=== PATIENT | male | born 1995 | race Caucasian/White ===

== ENCOUNTER 2017-08-02 15:19 | Emergency (ER) | payer BC, OTHER ==
[~2017-08-02] VITALS: Ht 182.9 cm; Wt 86.2 kg
[2017-08-02] MEDS ORDERED: TETRACAINE 0.5% OPHTH SOLN 4 ML BTL (SINGLE DOSE ONLY) ONE (15:51)
[2017-08-02] MEDS ORDERED: FLUORESCEIN (FLUOR-I-STRIPS) 1 MG STRP ONE (15:51)
[2017-08-02] MEDS ORDERED: TETRACAINE 0.5% OPHTH SOLN 4 ML BTL (SINGLE DOSE ONLY) OU ONE (16:15)
[2017-08-02] MEDS ORDERED: FLUORESCEIN (FLUOR-I-STRIPS) 1 MG STRP OU ONE (16:15)
--- NOTE | 2017-08-02 16:39 | ED EENT ---
History of Present Illness General Chief Complaint: Eye Problems Stated Complaint: L EYE REDNESS/SWELLING Nursing Triage Note: pt reports l eye redness and pain after sleeping with contacts in last night. Source: patient Exam Limitations: no limitations History of Present Illness Time seen by provider: 16:31 Initial Comments Patient presents to ER by private conveyance with a general complaint of left eye redness. He says he's been wearing his contacts in day and night for the past month. He says he does all the time and usually just gets a little irritated or red and he'll take it out for a day or 2 and it's better however today it's been exquisitely painful. He says he is not having any problems with vision other than he had baseline he has very poor vision. He does not know what his vision is. He does not have any glasses on him as he is from [place] and just here on holiday travel. He plans to leave on the , 2 days from now. He is not having any mattering or exudate from his eye. Is not having any fevers chills or swelling around the eye. He has not used anything for his eye yet. Allergies and Home Medications Allergies Coded Allergies: No Known Drug Allergies (Unverified , 08/02/17) Home Medications No Active Prescriptions or Reported Meds Review of Systems Constitutional: No chills, No diaphoresis Eyes: Denies Blindness, Blurred Vision, Denies Drainage, Denies Foreign Body Sensation, Inflammation, Pain, Photophobia, Denies Vision Changes, Contact Lenses, Denies Glasses Ears: Denies Dizziness, Denies Pain Nose: denies clots, denies congestion Mouth: denies clots, denies pain, denies swelling Respiratory: No cough, No wheezing Cardiovascular: No chest pain, No palpitations Gastrointestinal: No constipation, No diarrhea, No nausea, No vomiting Past Soyxvlv-Fnvhbx-Jtxhpt Hx Patient Social History Alcohol Use: Regular Use Alcohol Beverage of Choice: Beer Recreational Drug Use: No Smoking Status: Never a Smoker Recent Foreign Travel: No Contact w/Someone Who Travel: No Recent Infectious Disease Expo: No Physical Abuse: No Sexual Abuse: No Mistreated: No Fear: No Psychosocial Suicide Risk Score: 0 Physical Exam Vital Signs Vital Sign - Last 12Hours 08/02/17 15:47 Temp 97.2 Pulse 71 Resp 16 B/P (MAP) 142/79 (100) Pulse Ox 98 General Appearance: WD/WN, mild distress Eyes: right eye normal inspection, left eye conjunctival inflammation, left eye corneal abrasion (small linear 3 mm long at 6:00 and 2 mm long at 4:00 not there contiguous), bilateral eye PERRL, bilateral eye EOMI Ears: bilateral ear auricle normal, bilateral ear canal normal, bilateral ear TM normal Nose: normal inspection, No active bleeding Neck: full range of motion, normal inspection Neurologic/Psychiatric: alert, oriented x 3 Progress/Results/Core Measures Results/Orders My Orders Orders - CASSANDRA MC Fluorescein Strips (Rpfeq-S-Jlwcay) (08/02/17 15:51) Tetracaine 0.5% Ophth Magali Sdv (Tetracai (08/02/17 15:51) Tetracaine 0.5% Ophth Magali Sdv (Tetracai (08/02/17 16:15) Fluorescein Strips ([id number]-O-[id number]) (08/02/17 16:15) Medications Given in ED Current Medications Medications Dose Ordered Sig/Jaylin Route Start Time Stop Time Status Last Admin Dose Admin Fluorescein Sodium 1 mg ONCE ONCE OU 08/02/17 16:15 08/02/17 16:16 DC 08/02/17 16:42 1 MG Tetracaine HCl 4 ml ONCE ONCE OU 08/02/17 16:15 08/02/17 16:16 DC 08/02/17 16:42 4 ML Vital Signs/I&O Vital Sign - Last 12Hours 08/02/17 15:47 Temp 97.2 Pulse 71 Resp 16 B/P (MAP) 142/79 (100) Pulse Ox 98 Blood Pressure Mean: 100 Progress Note : Progress Note Fluorescein stain reveals 2 small corneal abrasions but no evidence of ulceration or other lesions indicative of an infection. He does have significant inflammation. He was counseled on proper use of contacts. We will get a visual acuity test and if he does okay on this then he can follow-up in 2- 3 days with optometry/ophthalmology of his choice. We'll cover him with some antibiotic drops. 1720: Visual acuity in the unaffected eye is 20/200 in the affected eye is 20/ 50. Together it's 20/50. Departure Impression Impression: Primary Impression: Corneal abrasion Qualified Codes: S05.02XA - Injury of conjunctiva and corneal abrasion without foreign body, left eye, initial encounter Additional Impression: Keratitis Disposition: 01 HOME, SELF-CARE Condition: Improved Departure-Patient Inst. Decision time for Depature: 17:24 Referrals: NO,LOCAL PHYSICIAN (PCP/Family) Primary Care Physician Patient Instructions: Corneal Abrasion (DC) Add. Discharge Instructions: Use your contact lens solution to rinse your eye out as needed. setup operator the antibiotic drops and apply 3 drops every 4 hours for 5 days. In 24-48 hours follow-up with either an pacs specialist or dx board operator of your choice. Dr. Odom can be contacted at [phone] to set up an appointment Thursday or Thursday. All discharge instructions reviewed with patient and/or family. Voiced understanding. Scripts Ciprofloxacin HCl (Ciloxan) 5 Ml Drops 3 DROPS OP Q4H for 5 Days, #1 EACH 0 Refills 3 Drops Each Ear Prov: CASSANDRA MC 08/02/17 Copy Copies To 1: JESSIKA OWEN OD CASSANDRA MC Aug 02, 2017 16:39
[2017-08-02] MEDS ORDERED: CIPR5DRO OP (17:25)
[2017-08-02 17:30] VITALS: BP 136/82
== END 2017-08-02 17:30 | disposition home or self-care (01) ==
LOC: EDUNIT# 15:19 → ER 15:21
DX: S05.02XA Injury of conjunctiva and corneal abrasion without foreign body, left eye, initial encounter (principal); H16.8 Other keratitis; X58.XXXA Exposure to other specified factors, initial encounter
CPT/HCPCS: 99282

== ENCOUNTER 2019-06-12 20:56 | Emergency (ER) | payer BC ==
[~2019-06-12] VITALS: Ht 182.8 cm; Wt 86.1 kg
[~2019-06-12 20:56] MED LIST: CIPR5DRO OP
[2019-06-12] MEDS ORDERED: LACTATED RINGERS 1,000 ML IV ONE ×3 (21:52→23:15)
[2019-06-12] MEDS ORDERED: ONDANSETRON 4 MG/2 ML (SDV) Z0FRAN IVP ONE (22:00)
[2019-06-12 22:17] LABS: BASOPHILS % (AUTO) 0 % (0-10); EOSINOPHILS % (AUTO) 0 % (0-10); HEMATOCRIT 47 % (40-54); HEMOGLOBIN 16.5 G/DL (13.3-17.7); LYMPHOCYTES # (AUTO) 0.7 X 10^3 (1.0-4.0); LYMPHOCYTES % (AUTO) 6 % (12-44); MEAN CORPUSCULAR HEMOGLOBIN 30 PG (25-34); MEAN CORPUSCULAR HGB CONC 35 G/DL (32-36); MEAN CORPUSCULAR VOLUME 85 FL (80-99); MEAN PLATELET VOLUME 11.2 FL (7.4-10.4); MONOCYTES # (AUTO) 0.9 X 10^3 (0.0-1.0); MONOCYTES % (AUTO) 7 % (0-12); NEUTROPHILS # (AUTO) 10.5 X 10^3 (1.8-7.8); NEUTROPHILS % (AUTO) 87 % (42-75); PLATELET COUNT 146 10^3/uL (130-400); RED CELL DISTRIBUTION WIDTH 13.3 % (10.0-14.5); WHITE BLOOD COUNT 12.1 10^3/uL (4.3-11.0)
[2019-06-12] MEDS ORDERED: NS 100 ML (IVPB) BAG IV ONE (22:30)
[2019-06-12] MEDS ORDERED: IOHEXOL 350 MG/ML 100 ML (OMNIPAQUE 350) VIAL IV ONE (22:30)
[2019-06-12 22:35] LABS: ALANINE AMINOTRANSFERASE 13 U/L (0-55); ALBUMIN 4.4 GM/DL (3.2-4.5); ALKALINE PHOSPHATASE 53 U/L (40-136); AMYLASE 49 U/L (25-125); BILIRUBIN,TOTAL 1.1 MG/DL (0.1-1.0); BUN/CREATININE RATIO 11; CALCIUM 9.3 MG/DL (8.5-10.1); CARBON DIOXIDE 20 MMOL/L (21-32); CHLORIDE 100 MMOL/L (98-107); CREATININE SERUM 1.28 MG/DL (0.60-1.30); GFR ESTIMATED > 60; GLUCOSE 118 MG/DL (70-105); LIPASE 14 U/L (8-78); POTASSIUM 3.6 MMOL/L (3.6-5.0); SODIUM 136 MMOL/L (135-145); TOTAL PROTEIN 7.2 GM/DL (6.4-8.2)
--- NOTE | 2019-06-12 22:37 | ED GI ---
General Stated Complaint: VOMITING, LOSS OF APPETITE Source of Information: Patient History of Present Illness Date Seen by Provider: Jun 12, 2019 Time Seen by Provider: 21:48 Initial Comments PT ARRIVES VIA POV FROM HOME WITH 2 ELDERLY FEMALES PT STATES "I BEEN HAVING PANIC ATTACKS AND I CAN'T KEEP ANYTHING DOWN" SINCE 0400 THIS AM--STATES HE NEVER REALLY SLEPT LAST NIGHT, WHICH IS ONGOING PROBLEM FOR PT. STATES HE HAS VOMITED "EVERY 20-30 MINUTES" ALL DAY LONG NO DIARRHEA C/O GENERALIZED ABDOMINAL PAIN LAST VOID IS UNKNOWN IS UNKNOWN IF HE HAS HAD FEVER OR NOT NO KNOWN SICK CONTACTS OR SUSPICIOUS FOODS PT STATES HE HAS "BEEN HAVING PANIC ATTACKS FOR THE LAST 2 MONTHS" WAS STARTED ON LEXAPRO--RX FILLED 05/20/19, AND XANAX RX FILLED 06/06/19--FIRST PRESCRIBED/FILLED LOCALLY ON 04/28/19. STATES HE HAS NOT TAKEN LEXAPRO TODAY, BUT HAS TAKEN XANAX TODAY AND HAS KEPT IT DOWN. PT DRINKS ON A REGULAR BASIS--3-4 DAYS/WEEK--AND DRANK "5 OR 6" DRINKS LAST PM PT ALSO LATER ADMITS TO USING THC "YEARS AGO" AND "ADDERALL TO HELP ME STUDY"--NOT PRESCRIBED TO HIM-- "BUT NOT FOR A LONG TIME" PCP: ERNA Allergies and Home Medications Allergies Coded Allergies: No Known Drug Allergies (Unverified , 08/02/17) Home Medications Amoxicillin/Potassium Clav 1 Each Tablet, 1 EACH PO BID Prescribed by: NELIDA CASTILLO on [birth year]13/1923 Ciprofloxacin HCl 5 Ml Drops, 3 DROPS OP Q4H 3 Drops Each Ear Prescribed by: CASSANDRA MC on 08/02/17 1725 Lactobacillus Acidophilus 1 Each Capsule, 2 EACH PO QID Prescribed by: NELIDA CASTILLO on 06/13/1923 Ondansetron 4 Mg Tab.rapdis, 4 MG PO Q4H Prescribed by: NELIDA CASTILLO on 06/13/1923 Patient Home Medication List Home Medication List Reviewed: Yes Review of Systems Review of Systems Constitutional: no symptoms reported; No chills, No diaphoresis, No dizziness, No fever EENTM: No Nose Congestion; Throat Pain (SINCE THIS AM) Respiratory: No Symptoms Reported Cardiovascular: No Symptoms Reported Gastrointestinal: See HPI, Abdominal Pain; Denies Diarrhea; Nausea, Poor Appetite, Poor Fluid Intake, Vomiting Genitourinary: See HPI Musculoskeletal: no symptoms reported Skin: no symptoms reported Psychiatric/Neurological: No Symptoms Reported, Anxiety; Denies Headache Endocrine: No Symptoms Reported Hematologic/Lymphatic: No Symptoms Reported Past Cfxcepm-Vcirzb-Fytata Hx Patient Social History Alcohol Use: Regular Use Alcohol Beverage of Choice: Beer Recreational Drug Use: Yes (THC, ADDERALL) Drug of Choice: THC, ADDERALL Smoking Status: Current Someday Smoker Type Used: Cigarettes Recent Foreign Travel: No Contact w/Someone Who Travel: No Past Medical History Surgeries: No Respiratory: No Cardiac: No Neurological: No Genitourinary: No Gastrointestinal: No Musculoskeletal: No Endocrine: No HEENT: No Psychosocial: Yes Sleep Difficulties, Anxiety Physical Exam Vital Signs Vital Signs - First Documented 06/12/19 21:25 Temp 39.0 Pulse 133 Resp 24 B/P (MAP) 120/69 (86) Pulse Ox 96 Capillary Refill : Height/Weight/BMI Height: 6'" Weight: 190lbs. oz. [id number]; BMI Method:Stated General Appearance: WD/WN, no apparent distress, other (DRAMATIC, KEEPS EYES CLOSED. VERY MALODOROUS) HEENT: PERRL/EOMI, TMs normal, pharyngeal erythema (AND TONSILS 2-3/4 IN SIZE. NO EVIDENCE OF PERITONSILLAR ABSCESS), tonsillar exudate (EXTENSIVE EXUDATES BILATERALLY) Neck: normal inspection Respiratory: normal breath sounds, no respiratory distress, no accessory muscle use Cardiovascular: regular rate, rhythm, no edema, no JVD, no murmur Gastrointestinal: normal bowel sounds, soft, no organomegaly, no pulsatile mass; No distended, No guarding, No rebound; tenderness (GENERALIZED); No hernia, No mass Extremities: normal inspection, no pedal edema, no calf tenderness, normal capillary refill Back: normal inspection, no CVA tenderness Neurologic/Psychiatric: lot porter II-XII nml as tested, no motor/sensory deficits, alert, oriented x 3 Skin: normal color, warm/dry Focused Exam Lactate Level 06/12/19 22:07: Lactic Acid Level 1.04 Lactic Acid Level Laboratory Tests Test 06/12/19 22:07 Lactic Acid Level 1.04 MMOL/L (0.50-2.00) Progress/Results/Core Measures Results/Orders Lab Results Laboratory Tests Test 06/12/19 22:02 06/12/19 22:07 06/12/19 22:28 06/12/19 23:25 Range/Units White Blood Count 12.1 H 4.3-11.0 10^3/uL Red Blood Count 5.58 4.35-5.85 10^6/uL Hemoglobin 16.5 13.3-17.7 G/DL Hematocrit 47 40-54 % Mean Corpuscular Volume 85 80-99 FL Mean Corpuscular Hemoglobin 30 25-34 PG Mean Corpuscular Hemoglobin Concent 35 32-36 G/DL Red Cell Distribution Width 13.3 10.0-14.5 % Platelet Count 146 130-400 10^3/uL Mean Platelet Volume 11.2 H 7.4-10.4 FL Neutrophils (%) (Auto) 87 H 42-75 % Lymphocytes (%) (Auto) 6 L 12-44 % Monocytes (%) (Auto) 7 0-12 % Eosinophils (%) (Auto) 0 0-10 % Basophils (%) (Auto) 0 0-10 % Neutrophils # (Auto) 10.5 H 1.8-7.8 X 10^3 Lymphocytes # (Auto) 0.7 L 1.0-4.0 X 10^3 Monocytes # (Auto) 0.9 0.0-1.0 X 10^3 Eosinophils # (Auto) 0.0 0.0-0.3 10^3/uL Basophils # (Auto) 0.0 0.0-0.1 10^3/uL Sodium Level 136 135-145 MMOL/L Potassium Level 3.6 3.6-5.0 MMOL/L Chloride Level 100 98-107 MMOL/L Carbon Dioxide Level 20 L 21-32 MMOL/L Anion Gap 16 H 5-14 MMOL/L Blood Urea Nitrogen 14 7-18 MG/DL Creatinine 1.28 0.60-1.30 MG/DL Estimat Glomerular Filtration Rate > 60 BUN/Creatinine Ratio 11 Glucose Level 118 H 70-105 MG/DL Calcium Level 9.3 8.5-10.1 MG/DL Corrected Calcium 9.0 8.5-10.1 MG/DL Magnesium Level 2.0 1.6-2.4 MG/DL Total Bilirubin 1.1 H 0.1-1.0 MG/DL Aspartate Amino Transf (AST/SGOT) 16 5-34 U/L Alanine Aminotransferase (ALT/SGPT) 13 0-55 U/L Alkaline Phosphatase 53 40-136 U/L Total Protein 7.2 6.4-8.2 GM/DL Albumin 4.4 3.2-4.5 GM/DL Amylase Level 49 25-125 U/L Lipase 14 8-78 U/L Serum Alcohol < 10 <10 MG/DL Lactic Acid Level 1.04 0.50-2.00 MMOL/L Monoscreen NEGATIVE NEGATIVE Urine Color YELLOW Urine Clarity CLEAR Urine pH 7 5-9 Urine Specific [place] 1.010 L 1.016-1.022 Urine Protein 3+ H NEGATIVE Urine Glucose (UA) NEGATIVE NEGATIVE Urine Ketones 4+ H NEGATIVE Urine Nitrite NEGATIVE NEGATIVE Urine Bilirubin 1+ H NEGATIVE Urine Urobilinogen 4 H NORMAL MG/DL Urine Leukocyte Esterase 1+ H NEGATIVE Urine RBC (Auto) 1+ H NEGATIVE Urine RBC 0-2 /HPF Urine WBC 0-2 /HPF Urine Crystals NONE /LPF Urine Bacteria TRACE /HPF Urine Casts NONE /LPF Urine Mucus NEGATIVE /LPF Urine Culture Indicated NO Urine Opiates Screen NEGATIVE NEGATIVE Urine Oxycodone Screen NEGATIVE NEGATIVE Urine Methadone Screen NEGATIVE NEGATIVE Urine Propoxyphene Screen NEGATIVE NEGATIVE Urine Barbiturates Screen NEGATIVE NEGATIVE Ur Tricyclic Antidepressants Screen NEGATIVE NEGATIVE Urine Phencyclidine Screen NEGATIVE NEGATIVE Urine Amphetamines Screen POSITIVE H NEGATIVE Urine Methamphetamines Screen NEGATIVE NEGATIVE Urine Benzodiazepines Screen POSITIVE H NEGATIVE Urine Cocaine Screen NEGATIVE NEGATIVE Urine Cannabinoids Screen POSITIVE H NEGATIVE Group A Streptococcus Screen POSITIVE H NEGATIVE Micro Results Microbiology 06/12/19 Influenza Types A,B Antigen (DWAYNE) - Final, Complete My Orders Orders - NELIDA CASTILLO DO Ua Culture If Indicated (06/12/19 21:47) Drug Screen Stat (Urine) (06/12/19 21:47) Ed Iv/Invasive Line Start (06/12/19 21:52) Alcohol (06/12/19 21:52) Amylase (06/12/19 21:52) Cbc With Automated Diff (06/12/19 21:52) Comprehensive Metabolic Panel (06/12/19 21:52) Lipase (06/12/19 21:52) Magnesium (06/12/19 21:52) Ct Abd/Pelv W (Appendicitis) (06/12/19 21:52) Ondansetron Injection (Zofran Injectio (06/12/19 22:00) Ed Iv/Invasive Line Start (06/12/19 21:52) Lactated Ringers (Lr 1000 Ml Iv Solution (06/12/19 21:52) Iohexol Injection (Omnipaque 350 Mg/Ml 1 (06/12/19 22:30) Ns (Ivpb) (Sodium Chloride 0.9% Ivpb Bag (06/12/19 22:30) Acute Abd Series (06/12/19 22:28) Monotest (06/12/19 22:45) Lactic Acid Analyzer (06/12/19 22:45) Rapid Strep A Screen (06/12/19 22:45) Blood Culture (06/12/19 22:45) Influenza A And B Antigens (06/12/19 22:45) Acetaminophen Tablet (Tylenol Tablet) (06/12/19 23:15) Ed Iv/Invasive Line Start (06/12/19 23:15) Lactated Ringers (Lr 1000 Ml Iv Solution (06/12/19 23:15) Ed Iv/Invasive Line Start (06/12/19 23:15) Lactated Ringers (Lr 1000 Ml Iv Solution (06/12/19 23:15) Ceftriaxone For Iv Use (Rocephin For I (06/13/19 00:00) Ceftriaxone For Iv Use (Rocephin For I (06/13/19 00:40) Water (Sterile) For Injection (Sterile W (06/13/19 00:40) Medications Given in ED Current Medications Medications Dose Ordered Sig/Jaylin Route Start Time Stop Time Status Last Admin Dose Admin Acetaminophen 1,000 mg ONCE ONCE PO 06/12/19 23:15 06/12/19 23:16 DC 06/12/19 23:20 1,000 MG Ceftriaxone Sodium 1000 mg/ Sterile Water 10 ml @ 200 mls/hr ONCE ONCE IV 06/13/19 00:00 06/13/19 01:02 DC 06/13/19 00:47 200 MLS/HR Iohexol 100 ml ONCE ONCE IV 06/12/19 22:30 06/13/19 01:02 DC 06/12/19 22:25 100 ML Lactated Ringer's 1,000 ml @ 0 mls/hr Q0M ONCE IV 06/12/19 21:52 06/12/19 21:55 DC 06/12/19 22:48 1,000 MLS/HR Lactated Ringer's 1,000 ml @ 0 mls/hr Q0M ONCE IV 06/12/19 23:15 06/12/19 23:16 DC 06/12/19 23:19 1,000 MLS/HR Lactated Ringer's 1,000 ml @ 0 mls/hr Q0M ONCE IV 06/12/19 23:15 06/12/19 23:16 DC 06/12/19 23:51 1,000 MLS/HR Ondansetron HCl 8 mg ONCE ONCE IVP 06/12/19 22:00 06/12/19 22:01 DC 06/12/19 22:49 8 MG Sodium Chloride 80 ml ONCE ONCE IV 06/12/19 22:30 06/13/19 01:02 DC 06/12/19 22:25 80 ML Vital Signs/I&O 06/12/19 06/12/19 06/13/19 21:25 23:20 00:45 Temp 39.0 38.3 37.6 Pulse 133 83 Resp 24 18 B/P (MAP) 120/69 (86) 101/54 (86) Pulse Ox 96 96 06/13/19 00:00 Intake Total 2000 ml Balance 2000 ml Progress Progress Note : Progress Note NO VOMITING DURING ER STAY. GIVEN ZOFRAN AND NAUSEA IS IMPROVED OVERALL IS FEELING MUCH BETTER AT DISMISSAL PT TOLERATING WATER AND ICE CHIPS PRIOR TO DISMISSAL QUESTION WHETHER SOME OF PT'S REPORTED ANXIETY SYMPTOMS AND SLEEP DIFFICULTIES ARE DIRECTLY RELATED TO HIS ILLICIT USE OF ADDERALL ALSO QUESTION WHETHER SOME OF PT'S REPORTED GI SYMPTOMS, AND POSSIBLY SOME OF HIS OTHER SYMPTOMS COULD ALSO BE RELATED TO DRINKING Diagnostic Imaging Comments ABDOMEN XRAYS--NO ACUTE PROCESS, PENDING RADIOLOGIST REVIEW CT ABDOMEN/PELVIS--HEPATOSPLENOMEGALY AND DIFFUSE HEPATIC STEATOSIS, MILDLY DISTENDED AND FLUID FILLED LOOPS OF SMALL BOWEL DISTALLY, WITH LIQUID STOOL IN PROXIMAL COLON--SUGGESTIVE OF ACUTE ENTERITIS, WITH MILD BLADDER WALL THICKENING, PER [facility] VIA FAX AT [id number] Reviewed: Reviewed by Me Departure Impression Primary Impression: Strep pharyngitis Additional Impressions: Gastroenteritis Illicit drug use Mild dehydration Disposition: HOME, SELF-CARE Condition: Improved Departure-Patient Inst. Referrals: NO,LOCAL PHYSICIAN (PCP/Family) Primary Care Physician Patient Instructions: [id number], Strep Throat (DC), Drug Abuse and Drug Addiction (DC) Add. Discharge Instructions: CLEAR LIQUIDS--WATER, BROTH, JELLO, GATORADE TOMORROW IF YOU ARE BETTER, ADD BRATS DIET TO CLEAR LIQUIDS--BANANAS, RICE, APPLESAUCE, TOAST, SALTINES TYLENOL 1 GRAM AND MOTRIN 800 MG 4 TIMES A DAY NEEDED FOR PAIN OR FEVER NO DRUGS!!! NO ALCOHOL!!! FOLLOW UP WITH YOUR DR IN 2-3 DAYS IF NO BETTER Scripts Ondansetron (Ondansetron Odt) 4 Mg Tab.rapdis 4 MG PO Q4H for Nausea/Vomiting, #10 TAB Prov: NELIDA CASTILLO DO 06/13/19 Lactobacillus Acidophilus (Acidophilus) 1 Each Capsule 2 EACH PO QID, #80 CAP Prov: NELIDA CASTILLO DO 06/13/19 Amoxicillin/Potassium Clav (Augmentin 875-125 Tablet) 1 Each Tablet 1 EACH PO BID for INFECTION, #20 TAB Prov: NELIDA CASTILLO DO 06/13/19 NELIDA CASTILLO DO Jun 12, 2019 22:37 POS
[2019-06-12] MEDS ORDERED: ACETAMINOPHEN 500 MG TAB (TYLENOL) PO ONE (23:15)
[2019-06-12 23:41] LABS: BILIRUBIN,URINE 1+ (NEGATIVE); CLARITY,URINE CLEAR; COLOR,URINE YELLOW; GLUCOSE, URINE (UA) NEGATIVE (NEGATIVE); KETONES,URINE 4+ (NEGATIVE); LEUKOCYTE ESTERASE ,URINE 1+ (NEGATIVE); NITRITE,URINE NEGATIVE (NEGATIVE); PH,URINE 7 (5-9); PROTEIN,URINE 3+ (NEGATIVE)
[2019-06-12 23:48] LABS: AMPHETAMINE SCREEN, URINE POSITIVE (NEGATIVE); BARBITURATE SCREEN URINE NEGATIVE (NEGATIVE); BENZODIAZEPINES SCREEN URINE POSITIVE (NEGATIVE); CANNABINOID SCREEN, URINE POSITIVE (NEGATIVE); COCAINE SCREEN URINE NEGATIVE (NEGATIVE); METHADONE STAT NEGATIVE (NEGATIVE); METHAMPHETAMINE SCREEN URINE S NEGATIVE (NEGATIVE); OPIATE SCREEN URINE NEGATIVE (NEGATIVE); OXYCODONE STAT NEGATIVE (NEGATIVE); PROPOXYPHENE STAT NEGATIVE (NEGATIVE); TRICYCLIC ANTIDEPRESSANTS SCRE NEGATIVE (NEGATIVE)
[2019-06-12 23:49] LABS: RBC,URINE 0-2 /HPF; WBC,URINE 0-2 /HPF
[2019-06-12 23:50] LABS: BACTERIA,URINE TRACE /HPF
[2019-06-13] MEDS ORDERED: cefTRIAXone FOR IV USE 1,000 MG in WATER (STERILE) FOR INJECTION 10 ML IV ONE ×2
[2019-06-13] MEDS ORDERED: ONDA4TAB11 PO (00:24)
[2019-06-13] MEDS ORDERED: AMOX-358 PO (00:24)
[2019-06-13] MEDS ORDERED: LACT1CAP8 PO (00:24)
[2019-06-13] MEDS ORDERED: cefTRIAXone 1,000 MG IV (ROCEPHIN) VIAL ONE (00:40)
[2019-06-13] MEDS ORDERED: WATER (STERILE) FOR INJECTION 10 ML ONE (00:40)
[2019-06-13 00:45] VITALS: BP 101/54
--- NOTE | 2019-06-13 07:05 | Diagnostic Imaging Report ---
INDICATION: Nausea, vomiting, and loss of appetite. FINDINGS: Upright view of the chest demonstrates the lungs to be clear. Heart, mediastinum, and pulmonary vascularity are normal. Supine and upright views of the abdomen demonstrate contrast in the renal collecting system from a recent CT scan. No bowel dilatation or free air is present. There are couple of nonspecific air-fluid levels. IMPRESSION: There are a few nonspecific air-fluid levels with slight prominence of the small bowel, possible enteritis. Dictated by: Dictated on workstation # [id number]
--- NOTE | 2019-06-13 07:09 | Diagnostic Imaging Report ---
PROCEDURE: CT abdomen and pelvis with contrast, rule out appendicitis. TECHNIQUE: Multiple contiguous axial images were obtained through the abdomen and pelvis after the administration of intravenous contrast. INDICATION: Nausea and vomiting with loss of appetite. COMPARISON STUDY: Obstructive series from the same day. FINDINGS: Examination demonstrates some mildly dilated loops of small bowel with few air-fluid levels. Liquid stool is present in the proximal colon. Findings are suggestive of an enteritis. The appendix was never identified. No inflammatory changes are seen in this region. There is no ascites, free air, or abnormal adenopathy. There is questionable mild urinary bladder wall thickening. Possible cystitis. Colon appears unremarkable. Lung bases are clear. Liver and spleen are upper normal. Gallbladder, pancreas, adrenal glands, and kidneys are normal. There are no hernias. The osseous and vascular structures are normal. IMPRESSION: 1. Findings are suggestive of enteritis. 2. Questionable mild wall thickening of the urinary bladder, possible cystitis. Findings agree with [facility] report. Dictated by: Dictated on workstation # [id number]
== END 2019-06-13 01:02 | disposition home or self-care (01) ==
LOC: EDUNIT# 20:56 → ER 20:58
DX: J02.0 Streptococcal pharyngitis (principal); K52.9 Noninfective gastroenteritis and colitis, unspecified; F12.90 Cannabis use, unspecified, uncomplicated; F15.90 Other stimulant use, unspecified, uncomplicated; F17.210 Nicotine dependence, cigarettes, uncomplicated; E86.0 Dehydration; F41.9 Anxiety disorder, unspecified
CPT/HCPCS: 36415; 74022; 74177; 80053; 80306; 80320; 81000; 82150; 83605; 83690; 83735; 85025; 86308; 87040; 87430; 87804

== ENCOUNTER 2019-08-01 14:57 | Outpatient (CLI) | payer BC ==
[~2019-08-01 14:57] MED LIST changes: +AMOX-358 PO; +LACT1CAP8 PO; +ONDA4TAB11 PO
== END 2019-08-01 15:26 | disposition home or self-care (01) ==
LOC: SLEEP 14:57
PROVIDERS: ATTEND Nurse Practitioner Family
DX: G47.10 Hypersomnia, unspecified (principal); F41.9 Anxiety disorder, unspecified

== ENCOUNTER → 2019-09-26 | Outpatient (CLI) | payer BC ==
--- NOTE | 2019-09-26 16:37 | Diagnostic Imaging Report ---
PROCEDURE: US Scrotum. TECHNIQUE: Multiple real-time grayscale images were obtained over the scrotum in various projections bilaterally. INDICATION: Palpable lump superior left testicle. FINDINGS: Right testicle measures 4.4 x 2.1 x 3.2 cm. The testicle demonstrates homogeneous echogenicity. There is normal blood flow. There are no discrete masses. There are several epididymal cysts largest measuring 8 mm. There is a small right hydrocele. There are no varicoceles. Left testicle measures 4.2 x 1.9 x 3 cm. There is a cluster of cysts in the epididymal head measuring 0.7 x 0.8 cm. Testicle itself demonstrates homogeneous echogenicity and normal blood flow. There are no discrete testicular masses. There is a small hydrocele. There are no varicoceles. IMPRESSION: Bilateral epididymal cysts left greater than right with small bilateral hydroceles. Otherwise unremarkable scrotal ultrasound. Dictated by: Dictated on workstation # [id number]
== END ==
LOC: RAD 15:09
PROVIDERS: ATTEND Nurse Practitioner Family
DX: N50.3 Cyst of epididymis (principal); N43.3 Hydrocele, unspecified; N50.89 Other specified disorders of the male genital organs
CPT/HCPCS: 76870